=== PATIENT | male | born 1945 | race Asian ===

== ENCOUNTER 2020-05-03 11:40 | Inpatient (IN) | payer MEDICARE, OTHER ==
[~2020-05-03] VITALS: Ht 165.1 cm; Wt 71.0 kg
[~2020-05-03 11:40] MED LIST: ACET500T64 PO; AMLO-211 PO; AMOX-291 PO; ATOR40TA78 PO; CLAR-14 PO; CYAN-27 PO; FENT1PAT76 TD; GLIP5TAB10 PO; HYDR-3341 PO; HYDR12.517 PO; INSU100I13 SQ-INSULIN; LOSA25TA25 PO; METF10002 PO; PANT40TA6 PO; POTA99TA8 PO; TAMS-11 PO
--- NOTE | 2020-05-03 12:09 | NUR ---
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
[2020-05-03 12:31] LABS: BASOPHILS % (AUTO) 1 % (0-1); EOSINOPHILS % (AUTO) 11 % (1-7); LYMPHOCYTES % (AUTO) 22 % (22-44); MEAN CORPUSCULAR HEMOGLOBIN 30.3 pg (27.5-34.5); MEAN CORPUSCULAR HGB CONC 33.5 g/dL (33.2-36.2); MEAN PLATELET VOLUME 8.1 fL (7.4-10.4); MONOCYTES % (AUTO) 9 % (2-9); NEUTROPHILS % (AUTO) 57 % (42-75); PLATELET COUNT 292 x10^3/uL (130-400); RED BLOOD COUNT 2.55 x10^6/uL (4.38-5.82); RED CELL DISTRIBUTION WIDTH 13.9 % (9.4-14.8)
[2020-05-03 12:34] LABS: MD NO
[2020-05-03 12:43] LABS: ALANINE AMINOTRANSFERASE 60 U/L (12-78); ALBUMIN 2.6 g/dL (3.4-5.0); CALCIUM 7.1 mg/dL (8.5-10.1); CHLORIDE 116 mmol/L (98-107)
--- NOTE | 2020-05-03 12:45 | NUR ---
PT IN BED A&O 4. TELE SR. ON ROOM AIR
[2020-05-03 12:48] LABS: ALKALINE PHOSPHATASE 209 U/L (45-117); BILIRUBIN,TOTAL 0.3 mg/dL (0.2-1.0); TOTAL PROTEIN 6.6 g/dL (6.4-8.2)
[2020-05-03 12:50] LABS: ANION GAP 9 mmol/L (5-15)
--- NOTE | 2020-05-03 13:50 | NUR ---
[facility] CONTACTED.
[2020-05-03] MEDS ORDERED: SODIUM CHLORIDE 0.9% 1,000ML IVBOLUS ONE (14:00)
[2020-05-03] MEDS ORDERED: GLIP5TAB10 PO (14:46)
[2020-05-03] MEDS ORDERED: CARV6.25 PO (14:46)
--- NOTE | 2020-05-03 14:46 | NUR ---
MED REC DONE. PT DOWN TO CT.
[2020-05-03] MEDS ORDERED: DEXTROSE 4 GM TAB.CHEW PO PRN (15:00)
[2020-05-03] MEDS ORDERED: DEXTROSE 50%, 50ML SYRINGE IVPush PRN (15:00)
[2020-05-03] MEDS ORDERED: ACETAMINOPHEN 325 MG TABLET PO PRN (15:00)
[2020-05-03] MEDS ORDERED: ONDANSETRON ODT 4 MG PO PRN (15:00)
[2020-05-03] MEDS ORDERED: DOCUSATE 100 MG CAPSULE PO PRN (15:00)
[2020-05-03] MEDS ORDERED: GLUCAGON 1 MG IM PRN (15:00)
[2020-05-03] MEDS ORDERED: LABETALOL 5MG/ML, 20ML IVPush PRN ×2 (15:00→23:00)
--- NOTE | 2020-05-03 15:04 | NUR ---
PT IN BED NO DISTRESS
--- NOTE | 2020-05-03 15:45 | NUR ---
PATIENT TRANSFERRED TO FLOOR IN STABLE CONDITION VIA GURNEY WITH [employer]. GRAHAM IN PLACE. ALL PATIENT BELONINGS GATHERED AND TAKEN WITH PATIENT.
[2020-05-03 15:52] VITALS: BP 171/62
[2020-05-03 15:54] VITALS: BP 167/65
[2020-05-03] MEDS: INSULIN LISPRO 100 UNITS/ML, PEN SQ-INSULIN SCH ×2 (16:00→21:18)
[2020-05-03] MEDS: SODIUM CHLORIDE 0.9% 1,000 ML IV SCH (16:24)
[2020-05-03] MEDS: HEPARIN 5,000 UNITS/ML, 1ML SQ SCH ×2 (16:42→23:38)
[2020-05-03 18:31] VITALS: BP 167/65
[2020-05-03 20:00] VITALS: BP 179/62
[2020-05-03] MEDS: CARVEDILOL 6.25 MG TABLET PO SCH (21:20)
[2020-05-03] MEDS: SODIUM CHLORIDE FLUSH 10ML SYR IVF SCH (21:20)
[2020-05-03] MEDS: ATORVASTATIN 40 MG TABLET PO SCH (21:20)
[2020-05-03 22:20] VITALS: BP 165/66
[2020-05-04 01:52] VITALS: BP 162/66
[2020-05-04 05:21] LABS: BASOPHILS % (AUTO) 1 % (0-1); EOSINOPHILS % (AUTO) 7 % (1-7); LYMPHOCYTES % (AUTO) 16 % (22-44); MEAN CORPUSCULAR HEMOGLOBIN 30.5 pg (27.5-34.5); MEAN CORPUSCULAR HGB CONC 33.7 g/dL (33.2-36.2); MEAN PLATELET VOLUME 7.9 fL (7.4-10.4); MONOCYTES % (AUTO) 9 % (2-9); NEUTROPHILS % (AUTO) 67 % (42-75); PLATELET COUNT 273 x10^3/uL (130-400); RED CELL DISTRIBUTION WIDTH 14.1 % (9.4-14.8)
[2020-05-04 05:30] LABS: ALBUMIN 2.5 g/dL (3.4-5.0); ANION GAP 12 mmol/L (5-15); CALCIUM 7.8 mg/dL (8.5-10.1); CHLORIDE 123 mmol/L (98-107); MD NO
[2020-05-04 05:33] LABS: ALANINE AMINOTRANSFERASE 48 U/L (12-78); ALKALINE PHOSPHATASE 151 U/L (45-117); BILIRUBIN,TOTAL 0.7 mg/dL (0.2-1.0); TOTAL PROTEIN 5.8 g/dL (6.4-8.2)
[2020-05-04] MEDS: INSULIN LISPRO 100 UNITS/ML, PEN SQ-INSULIN SCH ×4 (07:00→21:07)
[2020-05-04 07:17] VITALS: BP 162/75
[2020-05-04] MEDS: AMLODIPINE 10 MG TAB PO SCH (08:18)
[2020-05-04] MEDS: CARVEDILOL 6.25 MG TABLET PO SCH ×2 (08:19→21:07)
[2020-05-04] MEDS: HEPARIN 5,000 UNITS/ML, 1ML SQ SCH ×2 (08:20→17:13)
[2020-05-04] MEDS: SODIUM CHLORIDE FLUSH 10ML SYR IVF SCH ×2 (08:40→21:07)
[2020-05-04] MEDS: SODIUM CHLORIDE 0.9% 1,000 ML IV SCH (12:10)
[2020-05-04 13:14] VITALS: BP 144/69
[2020-05-04] MEDS ORDERED: DARBEPOETIN 100 MCG/ML SQ SCH (14:30)
[2020-05-04] MEDS ORDERED: SODIUM CHLORIDE 0.9% 1,000 ML IV SCH (15:00)
[2020-05-04] MEDS: SODIUM BICARBONATE 8.4% 75 MEQ in SODIUM CHLORIDE 0.45% 1,000 ML IV SCH (15:25)
[2020-05-04 20:00] VITALS: BP 170/69
[2020-05-04] MEDS: ATORVASTATIN 40 MG TABLET PO SCH (21:07)
[2020-05-04 23:54] VITALS: BP 168/72
[2020-05-05] VITALS (7 sets, daily range): BP systolic 152–175; BP diastolic 65–77
[2020-05-05] MEDS: hydrALAzine 20 MG/ML, 1ML IVPush PRN (00:36)
[2020-05-05] MEDS: HEPARIN 5,000 UNITS/ML, 1ML SQ SCH ×3 (01:04→16:20)
[2020-05-05] MEDS: SODIUM BICARBONATE 8.4% 75 MEQ in SODIUM CHLORIDE 0.45% 1,000 ML IV SCH ×3 (02:24→20:26)
[2020-05-05 06:22] LABS: % IRON SATURATION 25 % (20-55); ALBUMIN 2.5 g/dL (3.4-5.0); ANION GAP 11 mmol/L (5-15); CALCIUM 7.8 mg/dL (8.5-10.1); CHLORIDE 121 mmol/L (98-107); CREATININE 7.06 mg/dL (0.7-1.3); IRON LEVEL 38 mcg/dL (65-175); TOTAL IRON BINDING CAPACITY 150 mcg/dL (250-450)
[2020-05-05 06:26] LABS: BASOPHILS % (AUTO) 1 % (0-1); EOSINOPHILS % (AUTO) 9 % (1-7); LYMPHOCYTES % (AUTO) 22 % (22-44); MEAN CORPUSCULAR HEMOGLOBIN 30.1 pg (27.5-34.5); MEAN CORPUSCULAR HGB CONC 34.1 g/dL (33.2-36.2); MEAN PLATELET VOLUME 8.3 fL (7.4-10.4); MONOCYTES % (AUTO) 8 % (2-9); NEUTROPHILS % (AUTO) 60 % (42-75); PLATELET COUNT 274 x10^3/uL (130-400); RED BLOOD COUNT 2.48 x10^6/uL (4.38-5.82)
[2020-05-05] MEDS: INSULIN LISPRO 100 UNITS/ML, PEN SQ-INSULIN SCH ×4 (06:48→20:22)
[2020-05-05 06:55] LABS: MD NO
[2020-05-05] MEDS: CARVEDILOL 6.25 MG TABLET PO SCH (07:40)
[2020-05-05] MEDS: SODIUM CHLORIDE FLUSH 10ML SYR IVF SCH ×2 (07:40→20:23)
[2020-05-05] MEDS: AMLODIPINE 10 MG TAB PO SCH (07:40)
[2020-05-05] MEDS: TAMSULOSIN 0.4 MG CAP.ER.24H PO SCH (07:40)
[2020-05-05] MEDS: FINASTERIDE 5 MG TABLET PO SCH (07:40)
[2020-05-05] MEDS: FERROUS SULFATE 325 MG TABLET PO SCH (10:37)
[2020-05-05 13:33] LABS: CREATININE,URINE RANDOM 34.9 mg/dL
[2020-05-05] MEDS: ATORVASTATIN 40 MG TABLET PO SCH (20:22)
[2020-05-05] MEDS: CARVEDILOL 12.5 MG TABLET PO SCH (20:23)
[2020-05-06] MEDS: HEPARIN 5,000 UNITS/ML, 1ML SQ SCH ×3 (00:25→16:31)
[2020-05-06 00:34] VITALS: BP 172/79
[2020-05-06] MEDS: hydrALAzine 20 MG/ML, 1ML IVPush PRN (00:35)
[2020-05-06 00:36] VITALS: BP 171/73
[2020-05-06 01:17] VITALS: BP 164/71
[2020-05-06 01:30] LABS: MICROSCOPIC INDICATED
[2020-05-06] MEDS ORDERED: LORATADINE 10 MG TABLET PO PRN (05:00)
[2020-05-06] MEDS: FLUTICASONE NASAL SPRAY 16GM NAS PRN (05:01)
[2020-05-06] MEDS: SODIUM BICARBONATE 8.4% 75 MEQ in SODIUM CHLORIDE 0.45% 1,000 ML IV SCH ×3 (05:01→21:52)
[2020-05-06 05:58] LABS: BASOPHILS % (AUTO) 1 % (0-1); EOSINOPHILS % (AUTO) 6 % (1-7); LYMPHOCYTES % (AUTO) 17 % (22-44); MEAN PLATELET VOLUME 8.6 fL (7.4-10.4); MONOCYTES % (AUTO) 10 % (2-9); NEUTROPHILS % (AUTO) 66 % (42-75); PLATELET COUNT 283 x10^3/uL (130-400); RED BLOOD COUNT 2.48 x10^6/uL (4.38-5.82); RED CELL DISTRIBUTION WIDTH 14.1 % (9.4-14.8)
[2020-05-06 06:05] LABS: ALBUMIN 2.4 g/dL (3.4-5.0); ANION GAP 12 mmol/L (5-15); CALCIUM 7.1 mg/dL (8.5-10.1); CHLORIDE 115 mmol/L (98-107); CREATININE 6.45 mg/dL (0.7-1.3)
[2020-05-06 06:22] LABS: MD NO
[2020-05-06 06:49] VITALS: BP 167/74
[2020-05-06] MEDS: SODIUM CHLORIDE FLUSH 10ML SYR IVF SCH ×2 (08:09→20:02)
[2020-05-06] MEDS: CARVEDILOL 12.5 MG TABLET PO SCH ×2 (08:10→20:00)
[2020-05-06] MEDS: FERROUS SULFATE 325 MG TABLET PO SCH (08:10)
[2020-05-06] MEDS: INSULIN LISPRO 100 UNITS/ML, PEN SQ-INSULIN SCH ×4 (08:10→20:01)
[2020-05-06] MEDS: AMLODIPINE 10 MG TAB PO SCH (08:10)
[2020-05-06] MEDS: FINASTERIDE 5 MG TABLET PO SCH (08:10)
[2020-05-06] MEDS: TAMSULOSIN 0.4 MG CAP.ER.24H PO SCH (08:10)
[2020-05-06 13:20] VITALS: BP 158/60
[2020-05-06 19:22] VITALS: BP 163/77
[2020-05-06] MEDS: ATORVASTATIN 40 MG TABLET PO SCH (20:00)
[2020-05-07] MEDS: FLUTICASONE NASAL SPRAY 16GM NAS PRN (00:01)
[2020-05-07] MEDS: HEPARIN 5,000 UNITS/ML, 1ML SQ SCH ×4 (00:01→23:41)
[2020-05-07 00:05] VITALS: BP 170/72
[2020-05-07] MEDS: hydrALAzine 20 MG/ML, 1ML IVPush PRN (00:10)
[2020-05-07 00:40] VITALS: BP 159/66
[2020-05-07 05:55] LABS: BASOPHILS % (AUTO) 1 % (0-1); EOSINOPHILS % (AUTO) 5 % (1-7); LYMPHOCYTES % (AUTO) 13 % (22-44); MEAN CORPUSCULAR HGB CONC 33.8 g/dL (33.2-36.2); MEAN PLATELET VOLUME 8.2 fL (7.4-10.4); MONOCYTES % (AUTO) 8 % (2-9); NEUTROPHILS % (AUTO) 73 % (42-75); PLATELET COUNT 271 x10^3/uL (130-400); RED BLOOD COUNT 2.33 x10^6/uL (4.38-5.82); RED CELL DISTRIBUTION WIDTH 13.8 % (9.4-14.8)
[2020-05-07 06:02] LABS: CHLORIDE 110 mmol/L (98-107)
[2020-05-07 06:06] LABS: ALBUMIN 2.2 g/dL (3.4-5.0); ANION GAP 12 mmol/L (5-15); CREATININE 6.45 mg/dL (0.7-1.3); MD NO
[2020-05-07] MEDS: SODIUM BICARBONATE 8.4% 75 MEQ in SODIUM CHLORIDE 0.45% 1,000 ML IV SCH (06:36)
[2020-05-07 06:57] VITALS: BP 170/74
[2020-05-07] MEDS: INSULIN LISPRO 100 UNITS/ML, PEN SQ-INSULIN SCH ×4 (07:00→20:10)
[2020-05-07] MEDS: FERROUS SULFATE 325 MG TABLET PO SCH (08:25)
[2020-05-07] MEDS: AMLODIPINE 10 MG TAB PO SCH (08:25)
[2020-05-07] MEDS: TAMSULOSIN 0.4 MG CAP.ER.24H PO SCH (08:25)
[2020-05-07] MEDS: SODIUM CHLORIDE FLUSH 10ML SYR IVF SCH ×2 (08:26→20:11)
[2020-05-07] MEDS: FINASTERIDE 5 MG TABLET PO SCH (08:26)
[2020-05-07] MEDS: CARVEDILOL 12.5 MG TABLET PO SCH ×2 (08:26→20:09)
[2020-05-07] MEDS ORDERED: CALCIUM GLUCONATE 9.2 MEQ in SODIUM CHLORIDE 0.9% 100 ML IV ONE (12:30)
[2020-05-07 12:38] VITALS: BP 152/63
[2020-05-07] MEDS: SODIUM BICARBONATE 650 MG TABLET PO SCH ×2 (17:08→20:09)
[2020-05-07 19:18] VITALS: BP 166/75
[2020-05-07] MEDS: ATORVASTATIN 40 MG TABLET PO SCH (20:09)
[2020-05-08] VITALS (10 sets, daily range): BP systolic 147–163; BP diastolic 62–69
[2020-05-08 05:35] LABS: BASOPHILS % (AUTO) 1 % (0-1); EOSINOPHILS % (AUTO) 5 % (1-7); LYMPHOCYTES % (AUTO) 15 % (22-44); MEAN CORPUSCULAR HEMOGLOBIN 30.1 pg (27.5-34.5); MEAN CORPUSCULAR HGB CONC 33.6 g/dL (33.2-36.2); MEAN PLATELET VOLUME 8.5 fL (7.4-10.4); MONOCYTES % (AUTO) 9 % (2-9); NEUTROPHILS % (AUTO) 70 % (42-75); PLATELET COUNT 281 x10^3/uL (130-400); RED BLOOD COUNT 2.25 x10^6/uL (4.38-5.82); RED CELL DISTRIBUTION WIDTH 13.8 % (9.4-14.8)
[2020-05-08 05:36] LABS: ALBUMIN 2.1 g/dL (3.4-5.0); ANION GAP 11 mmol/L (5-15); CHLORIDE 111 mmol/L (98-107); CREATININE 6.72 mg/dL (0.7-1.3)
[2020-05-08 05:48] LABS: MD NO
[2020-05-08] MEDS: INSULIN LISPRO 100 UNITS/ML, PEN SQ-INSULIN SCH ×4 (07:00→20:23)
[2020-05-08] MEDS ORDERED: SODIUM CHLORIDE 0.9% 1,000 ML IV SCH (08:00)
[2020-05-08] MEDS: AMLODIPINE 10 MG TAB PO SCH (08:48)
[2020-05-08] MEDS: FINASTERIDE 5 MG TABLET PO SCH (08:48)
[2020-05-08] MEDS: HEPARIN 5,000 UNITS/ML, 1ML SQ SCH ×3 (08:48→23:00)
[2020-05-08] MEDS: SODIUM BICARBONATE 650 MG TABLET PO SCH ×4 (08:49→20:21)
[2020-05-08] MEDS: CARVEDILOL 12.5 MG TABLET PO SCH ×2 (08:49→20:21)
[2020-05-08] MEDS: FERROUS SULFATE 325 MG TABLET PO SCH (08:50)
[2020-05-08] MEDS: SODIUM CHLORIDE FLUSH 10ML SYR IVF SCH ×2 (08:50→20:23)
[2020-05-08] MEDS: TAMSULOSIN 0.4 MG CAP.ER.24H PO SCH (08:50)
[2020-05-08] MEDS: AMOXICILLIN 500 MG CAPSULE PO SCH ×2 (11:24→20:21)
[2020-05-08] MEDS: ATORVASTATIN 40 MG TABLET PO SCH (20:21)
[2020-05-08] MEDS ORDERED: DOXAZOSIN 1MG TABLET PO SCH (21:00)
[2020-05-09 00:22] VITALS: BP 139/61
[2020-05-09 05:43] LABS: MEAN CORPUSCULAR HEMOGLOBIN 29.5 pg (27.5-34.5); MEAN CORPUSCULAR HGB CONC 32.7 g/dL (33.2-36.2); PLATELET COUNT 271 x10^3/uL (130-400); RED BLOOD COUNT 2.75 x10^6/uL (4.38-5.82); RED CELL DISTRIBUTION WIDTH 13.7 % (9.4-14.8)
[2020-05-09 05:48] LABS: ALBUMIN 2.2 g/dL (3.4-5.0); ANION GAP 10 mmol/L (5-15); CALCIUM 7.3 mg/dL (8.5-10.1); CHLORIDE 111 mmol/L (98-107); CREATININE 7.07 mg/dL (0.7-1.3)
[2020-05-09 06:31] LABS: MD YES
[2020-05-09 06:33] LABS: BAND#(MANUAL) 0.14 x10^3/uL; BANDS%(MANUAL) 1 % (0-7); BASOS#(MANUAL) 0.28 x10^3/uL (0-0.1); BASOS% (MANUAL) 2 % (0-1); EOS#(MANUAL) 0.14 x10^3/uL (0.0-0.4); EOS% (MANUAL) 1 % (1-7); LYMPH#(MANUAL) 2.35 x10^3/uL (1-3.4); LYMPHS% (MANUAL) 17 % (22-44); MONOS#(MANUAL) 1.79 x10^3/uL (0.3-2.7); MONOS% (MANUAL) 13 % (2-9); MYELOCYTES# (MANUAL) 0.14 x10^3/uL (0-0); MYELOCYTES% (MANUAL) 1 % (0-0); SEG#(MANUAL) 8.97 x10^3/uL (1.8-6.8); SEGS% (MANUAL) 65 % (42-75)
[2020-05-09 06:34] LABS: SCHISTOCYTES 1+
[2020-05-09 06:35] LABS: ANISOCYTOSIS 1+; OVALOCYTES 1+; POLYCHROMASIA 1+
[2020-05-09 06:36] LABS: <PLATELET ESTIMATE> ADEQUATE; <PLT MORPHOLOGY> NORMAL PLT MORPH; SPHEROCYTES 1+
[2020-05-09] MEDS: INSULIN LISPRO 100 UNITS/ML, PEN SQ-INSULIN SCH ×2 (07:00→11:21)
[2020-05-09] MEDS: CARVEDILOL 12.5 MG TABLET PO SCH (08:16)
[2020-05-09] MEDS: FERROUS SULFATE 325 MG TABLET PO SCH (08:17)
[2020-05-09] MEDS: SODIUM BICARBONATE 650 MG TABLET PO SCH (08:17)
[2020-05-09 08:18] VITALS: BP 152/72
[2020-05-09] MEDS: TAMSULOSIN 0.4 MG CAP.ER.24H PO SCH (08:20)
[2020-05-09] MEDS: AMOXICILLIN 500 MG CAPSULE PO SCH (08:20)
[2020-05-09] MEDS: AMLODIPINE 10 MG TAB PO SCH (08:20)
[2020-05-09] MEDS: HEPARIN 5,000 UNITS/ML, 1ML SQ SCH (08:20)
[2020-05-09] MEDS: FINASTERIDE 5 MG TABLET PO SCH (08:20)
[2020-05-09] MEDS: SODIUM CHLORIDE FLUSH 10ML SYR IVF SCH (08:21)
[2020-05-09] MEDS ORDERED: CALCITRIOL 0.25 MCG CAPSULE PO SCH (09:00)
[2020-05-09] MEDS ORDERED: DOCU-131 PO (10:58)
[2020-05-09] MEDS ORDERED: FINA5TAB4 PO (10:58)
[2020-05-09] MEDS ORDERED: CARV12.52 PO (10:58)
[2020-05-09] MEDS ORDERED: CALC0.25 PO (10:58)
[2020-05-09] MEDS ORDERED: AMOX-291 PO (10:58)
[2020-05-09] MEDS ORDERED: TAMS-11 PO (10:58)
[2020-05-09] MEDS ORDERED: FERR-51 PO (10:58)
[2020-05-09] MEDS ORDERED: HYDR-3341 PO (10:58)
== END 2020-05-09 13:18 | disposition home or self-care (01) | DRG 682 ==
LOC: ED 13:54 → EDIP 14:43 → 3N 15:39 → DCLOUNGE 05-09 12:30
PROVIDERS: ADMIT Family Medicine; ATTEND Family Medicine
PROC: 30233N1 Transfusion of Nonautologous Red Blood Cells into Peripheral Vein, Percutaneous Approach (ICD-10-PCS; principal; 2020-05-08)
DX: N17.9 Acute kidney failure, unspecified (principal); E43 Unspecified severe protein-calorie malnutrition; N13.8 Other obstructive and reflux uropathy; I12.0 Hypertensive chronic kidney disease with stage 5 chronic kidney disease or end stage renal disease; N18.5 Chronic kidney disease, stage 5; D63.1 Anemia in chronic kidney disease; R33.8 Other retention of urine; N40.1 Benign prostatic hyperplasia with lower urinary tract symptoms; E87.70 Fluid overload, unspecified; E83.51 Hypocalcemia; E78.00 Pure hypercholesterolemia, unspecified; I48.91 Unspecified atrial fibrillation; E10.22 Type 1 diabetes mellitus with diabetic chronic kidney disease; E10.65 Type 1 diabetes mellitus with hyperglycemia; D72.829 Elevated white blood cell count, unspecified; Z95.828 Presence of other vascular implants and grafts; Z87.891 Personal history of nicotine dependence; Z86.718 Personal history of other venous thrombosis and embolism; Z79.899 Other long term (current) drug therapy; Z79.4 Long term (current) use of insulin
CPT/HCPCS: 36415; 71045; 74176; 80048; 80053; 80069; 81001; 82040; 82043; 82274; 82570; 82962; 83036; 83540; 83550; 83880; 83970; 84100; 84156; 85014; 85018; 85025; 86850; 86900; 86923; 87086; 87106; 87147; 93005; 93306; 99285; G0378; J0610; J0881; J1644; J0360; J1815; J7030; P9016

== ENCOUNTER 2020-05-14 00:36 | Emergency (ER) | payer MEDICARE ==
[~2020-05-14] VITALS: Ht 165.1 cm; Wt 72.0 kg
[~2020-05-14 00:36] MED LIST changes: +CALC0.25 PO; +CARV12.52 PO; +CARV6.25 PO; +DOCU-131 PO; +FERR-51 PO; +FINA5TAB4 PO
--- NOTE | 2020-05-14 00:56 | NUR ---
RN and pt's son at bedside, pt's son helping answer questions and provide pt. hx. Pt was reportedly admitted to [facility] on May 03 and discharged May 10. Pt and pt's son unable to specify reason for admit, just stating it was for "decreased kidney function" and a catheter was placed as pt states he was unable to urinate. Catheter is in place today, pt reports he last emptied it about 1900 today but this evening has been having pain in lower abdomin and noticed white discharge in the catheter. Denies fever, chills, n/v, diarrhea, SOB, chest pain. A+Ox4. Slight edema present in lower extremeties bilaterally pt reports is not new. Pt states only other medical hx is diabetes.
--- NOTE | 2020-05-14 01:30 | NUR ---
Bladder scan done: 637mL urine.
--- NOTE | 2020-05-14 01:35 | NUR ---
UA collected off of catheter that pt came in with per MD instruction and walked to lab.
--- NOTE | 2020-05-14 01:51 | NUR ---
Old mckeon removed- pt urinated approx. 250mL urine, informed Dr. Wang, recommended to pt and family that we should still put a mckeon in tonight. 16fr mckeon inserted, cloudy urine output of 300mL initially.
[2020-05-14 01:59] LABS: MICROSCOPIC INDICATED
[2020-05-14] MEDS ORDERED: ACETAMINOPHEN 325 MG TABLET ONE (02:06)
--- NOTE | 2020-05-14 02:09 | NUR ---
Medicated per eMAR
--- NOTE | 2020-05-14 02:20 | NUR ---
Dr. Wang at bedside.
[2020-05-14] MEDS ORDERED: ACETAMINOPHEN 325 MG TABLET PO ONE (02:30)
[2020-05-14] MEDS ORDERED: FLUCONAZOLE 100 MG TABLET PO ONE (02:30)
[2020-05-14] MEDS ORDERED: CEFDINIR 300 MG CAPSULE PO ONE (02:30)
[2020-05-14] MEDS ORDERED: CEFDINIR 300 MG CAPSULE ONE (02:34)
[2020-05-14] MEDS ORDERED: FLUCONAZOLE 100 MG TABLET ONE (02:34)
[2020-05-14 02:44] VITALS: BP 150/58
--- NOTE | 2020-05-14 02:47 | NUR ---
Replaced mckeon bag with leg bag.
== END 2020-05-14 02:56 | disposition home or self-care (01) ==
LOC: ED 02:12
DX: N30.01 Acute cystitis with hematuria (principal); I10 Essential (primary) hypertension; E11.9 Type 2 diabetes mellitus without complications; E78.00 Pure hypercholesterolemia, unspecified; I48.91 Unspecified atrial fibrillation
CPT/HCPCS: 51702; 81001; 87086; 87106; 99284